=== PATIENT | male | born 1955 | race African-American/Black ===

== ENCOUNTER → 2016-07-26 | Outpatient (CLI) | payer MEDICARE, OTHER ==
[~2016-07-26] MED LIST: NEXIUM20 MG PO
--- NOTE | ~2016-07-26 | CR20 ---
[facility] A Service of [facility] / [facility] RADIOLOGY TEXT RESULTS PATIENT: BONY RIOS LOCATION: [facility] : 57 UNIT #: [id number] AGE: [address]: JANICE COON APRN SEX: M ORDER DR: [id number] [facility] [address] [place], [place] [address] [id number] O MR#: [id number] Acc #: [id number] NAME: BONY RIOS : 1955 SEX: M STUDY DATE/TIME: 07/26/2016 15:29 UNIT: [facility] ROOM: STUDY DESCRIPTION: CR Ankle Min 3 Views Lt Attending Physician: Janice Coon Referring Physician: Janice Coon Ordering Physician: David Collado Aprn Primary Care Physician: No Primary Care Physician MEDICAL IMAGING REPORT This report is preliminary unless electronic signature is present EXAM Left ankle 3 views 07/26/2016 HISTORY Left ankle pain status post fall 1 day ago with left ankle swelling. FINDINGS 3 views of the left ankle demonstrate oblique nondisplaced fracture involving the distal fibula which appears acute or subacute. No other fracture or dislocation is seen. The bones are normally mineralized. The ankle mortise is intact. There is soft tissue swelling overlying the lateral malleolus and there is a small ankle joint effusion. IMPRESSION 1. Oblique nondisplaced fracture involving the distal fibula. 2. Soft tissue swelling about the left ankle primarily laterally and there is a small ankle joint effusion. Dictated by... Noel Christian M.D. THIS IS AN ELECTRONICALLY VERIFIED REPORT Noel Christian M.D. at 07/27/2016 8:08 AM CHAPIS/sherri TD: 07/26/2016 20:20 JOB #: [id number] MEDICAL IMAGING REPORT Page 1 of 1 COPY
== END | disposition home or self-care (01) ==
LOC: CRAD 15:09
DX: S99.912A Unspecified injury of left ankle, initial encounter (principal); M25.572 Pain in left ankle and joints of left foot; S82.832A Other fracture of upper and lower end of left fibula, initial encounter for closed fracture; M25.472 Effusion, left ankle
CPT/HCPCS: 73610